=== PATIENT | male | born 1950 | race Caucasian/White ===

== ENCOUNTER → 2017-01-24 | Outpatient (CLI) | payer MEDICARE ==
[~2017-01-24] MED LIST: ALBU8.5H2 IH; ALLO300T2 PO; BENZ200C25 PO; CATHETER FLUSH 10 ML SYR IV PRN; LEVO75TA6 PO; LISI10TA2 PO; LISI20TA PO; LOVA20TA2 PO; OMEG-12 PO; OSLT75CRX PO; PANT20TA2 PO; PRED20TA PO; REGADENOSON 0.4 MG/5 ML SYR (LEXISCAN) IV ONE
[2017-01-24 08:02] VITALS: BP 139/84
--- NOTE | 2017-01-24 13:29 | STRESS TEST ---
DATE OF SERVICE: 01/24/2017 RESTING AND POST REGADENOSON TECHNETIUM 99M TETROFOSMIN SPECT CT IMAGING ORDERING PHYSICIAN: Dr. Hui. PRIMARY PHYSICIAN: Dr. Hui. CLINICAL DIAGNOSIS: Chest discomfort. Baseline images were carried out after injection of 10.78 mCi of technetium-99m tetrofosmin. This was followed by 0.4 mg regadenoson and 30 mCi of technetium-99m tetrofosmin for stress imaging. The study was carried out under Dr. Hui's supervision and the electrocardiographic portion of the study is reported separately by him. Review of images at rest and following stress indicates a small basal inferior perfusion defect which appears transient. Gated images show normal global left systolic function with normal regional wall motion. Left ventricular ejection fraction is calculated to be 55%. Left ventricular inner diastolic volume is 99 mL. TID is absent (1.02). CONCLUSIONS: 1. This study is suggestive of a small amount of basal inferior ischemia. 2. Normal regional wall motion. 3. Normal global left ventricular systolic function with a calculated ejection fraction of 55%. Job ID: [id number] DocumentID: [id number] Dictated Date: 01/24/2017 12:08:42 Medical Physics Researcher Date: 01/24/2017 12:21:54 Dictated By: VERONICA SIMS MD, MA, FACP, FACC, MTDD
== END ==
LOC: CARD 06:40
PROVIDERS: ATTEND Internal Medicine
DX: R53.83 Other fatigue (principal); I10 Essential (primary) hypertension; R07.9 Chest pain, unspecified
CPT/HCPCS: 78452; 93017

== ENCOUNTER → 2020-05-03 | Outpatient (CLI) | payer MEDICARE ==
[~2020-05-03] MED LIST changes: -CATHETER FLUSH 10 ML SYR IV PRN; -REGADENOSON 0.4 MG/5 ML SYR (LEXISCAN) IV ONE
--- NOTE | 2020-05-03 12:25 | Diagnostic Imaging Report ---
PROCEDURE: CT sinuses without contrast TECHNIQUE: Multiple contiguous axial images were obtained through the sinuses without the use of intravenous contrast. Coronal and sagittal reformations were then performed. Auto Exposure Controls were utilized during the CT exam to meet ALARA standards for radiation dose reduction. INDICATION: Sinus congestion and headaches. The frontal sinus is clear. There is some mucosal thickening of ethmoid air cells bilaterally. The sphenoid sinus is clear. Trace mucosal thickening of the right maxillary sinus is noted. There is complete opacification of the left maxillary sinus. Nasal septum is midline. There is opacification of the left ostiomeatal complex. The right ostiomeatal complex is patent. Mastoid air cells are well aerated. IMPRESSION: Findings consistent with left maxillary sinusitis. There is mucosal disease of the ethmoid air cells and right maxillary sinus. Dictated by: Dictated on workstation # [id number]
== END ==
LOC: RAD 09:45
PROVIDERS: ATTEND Internal Medicine
DX: J01.01 Acute recurrent maxillary sinusitis (principal)
CPT/HCPCS: 70486

== ENCOUNTER 2020-07-23 10:43 | Emergency (ER) | payer MEDICARE ==
[~2020-07-23] VITALS: Ht 185 cm; Wt 106.8 kg
[2020-07-23] MEDS ORDERED: TETANUS,DIPTH,PERTUSS P/F (BOOSTRIX) 0.5 ML VIAL IM ONE (11:00)
[2020-07-23] MEDS ORDERED: LIDOCAINE 1% INJ 20 ML 20 ML VIAL INJ ONE (11:00)
[2020-07-23] MEDS ORDERED: CEPH-507 PO (11:40)
--- NOTE | 2020-07-23 11:40 | ED Upper Extremity ---
General Chief Complaint: Laceration Stated Complaint: L HAND THUMB LAC Nursing Triage Note: laceration to L thumb Nursing Sepsis Screen: No Definite Risk Source: patient Exam Limitations: no limitations History of Present Illness Date Seen by Provider: Jul 23, 2020 Time Seen by Provider: 11:00 Initial Comments This is a healthy 69-year-old male presents to ER with complaints of left thumb laceration from an X-Acto knife while cutting sheet rock prior to arrival. States he had just changed the blade prior to incident. Was able to control blee ding with dish towel. Unknown last tetanus. No other injuries reported. Onset: just prior to arrival Severity: mild Pain/Injury Location: left thumb Method of Injury: other (x-acto knife) Allergies and Home Medications Allergies Coded Allergies: No Known Drug Allergies (Unverified , 12/05/10) Home Medications Allopurinol 300 Mg Tab, 300 MG PO DAILY, (Reported) Cephalexin 500 Mg Capsule, 500 MG PO TID Prescribed by: TEENA BURROUGHS on 07/23/20 1140 Levothyroxine Sodium 75 Mcg Tablet, 75 MCG PO DAILY, (Reported) Lisinopril 20 Mg Tablet, 20 MG PO DAILY, (Reported) Lovastatin 20 Mg Tablet, 20 MG PO DAILY WITH LUNCH, (Reported) [place]-3/Dha/Epa/Fish Oil 1 Each Capsule.dr, 2,000 MG PO DAILY, (Reported) TAKES 2 (1000MG) CAPSULES Pantoprazole Sodium 20 Mg Tablet.dr, 20 MG PO DAILY, (Reported) OVER THE COUNTER Patient Home Medication List Home Medication List Reviewed: Yes Review of Systems Constitutional: no symptoms reported EENTM: no symptoms reported Respiratory: no symptoms reported Cardiovascular: no symptoms reported Gastrointestinal: no symptoms reported Genitourinary: no symptoms reported Musculoskeletal: no symptoms reported Skin: see HPI Psychiatric/Neurological: No Symptoms Reported Past Dlaumwn-Mgcwft-Upvjeu Hx Patient Social History Alcohol Use: Denies Use Recreational Drug Use: No Smoking Status: Never a Smoker Recent Foreign Travel: No Contact w/Someone Who Travel: No Recent Infectious Disease Expo: No Immunizations Up To Date Tetanus Booster (TDap): Less than 5yrs PED Vaccines UTD: No Date of Influenza Vaccine: Nov 12, 2014 Seasonal Allergies Seasonal Allergies: No Past Medical History Surgeries: Yes ( RIGHT ARTHOSCOPY, SARCOMA REMOVAL) Orthopedic Respiratory: No Cardiac: Yes High Cholesterol, Hypertension Neurological: No Reproductive Disorders: No Sexually Transmitted Disease: No HIV/AIDS: No Gastrointestinal: No Musculoskeletal: No Gout Endocrine: No 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) Psychosocial: No Integumentary: No Blood Disorders: No Family Medical History Alzheimer's disease 19 FATHER Arthritis 19 FATHER Cataracts 19 FATHER 19 MOTHER Completed stroke 19 FATHER Deafness or hearing loss 19 FATHER 19 MOTHER Dementia 19 FATHER Hypercholesterolemia 19 FATHER Hypertension 19 FATHER Myocardial infarction G8 BROTHER Prostate cancer 19 FATHER G8 BROTHER No Family History of: AIDS Abdominal aortic aneurysm Patrick's disease Alcoholism Aphasia Asthma Cancer of mouth Cardiovascular disease Colon cancer Congenital disease Congenital heart disease Coronary thrombosis Cystic fibrosis Diabetes mellitus Drug abuse Dysphasia Fibrocystic disease of breast Gastroenteritis Glaucoma Headache disorder Infertility Kidney disease Neoplasm Not obtainable due to adoption Osteoporosis Parkinson's disease Psychosocial problem Respiratory disorder Seizure disorder Severe allergy Thyroid disease Tuberculosis Visual disorder Physical Exam Vital Signs Vital Signs - First Documented 07/23/20 10:48 Temp 36.5 Pulse 90 Resp 18 B/P (MAP) 200/103 (135) Pulse Ox 98 Capillary Refill : Less Than 3 Seconds Height, Weight, BMI Height: 6'1.00" Weight: 237lbs. 5.0oz. [id number]; 31.00 BMI Method:Stated General Appearance: WD/WN, no apparent distress HEENT: PERRL/EOMI Neck: full range of motion, normal inspection Cardiovascular: regular rate, rhythm, no gallop, no murmur Respiratory: lungs clear, normal breath sounds, no respiratory distress Back: normal inspection Hand: Left, laceration (left thumb ) Neurologic/Tendon: normal sensation, normal motor functions, normal tendon functions Neurologic/Psychiatric: no motor/sensory deficits, alert, normal mood/affect Skin: normal color, warm/dry, other (see wound repair note. ) Procedures/Interventions Wound Location: Other (left thumb ) Other Wound Location Left lateral thumb pad Wound Length (cm): 2 Wound's Depth, Shape: linear Wound Explored: clean Anesthesia: 1% Lidocaine Volume Anesthetic (ccs): 3 Suture: Prolene Suture Size: 4-0 Number of Sutures: 4 Neurovascular intact prior to anesthetizing left thumb. Site was cleansed with normal saline and chlorhexidine wash. Skin was approximated with 4 sutures, tolerated well. Covered site with dry sterile dressing. Reviewed discharge instructions and he is agreeable with plan. Progress/Results/Core Measures Results/Orders Medications Given in ED Current Medications Medications Dose Ordered Sig/Tila Route Start Time Stop Time Status Last Admin Dose Admin Diphtheria/ Tetanus/Acell Pertussis 0.5 ml ONCE ONCE IM 07/23/20 11:00 07/23/20 11:01 DC 07/23/20 10:54 0.5 ML Vital Signs/I&O 07/23/20 10:48 Temp 36.5 Pulse 90 Resp 18 B/P (MAP) 200/103 (135) Pulse Ox 98 Blood Pressure Mean: 135 Departure Impression Primary Impression: Laceration of thumb Disposition: 01 HOME, SELF-CARE Condition: Improved Departure-Patient Inst. Decision time for Depature: 11:36 Referrals: JEFF MENDENHALL DO (PCP/Family) Primary Care Physician Patient Instructions: Laceration Repair With Stitches (DC) Add. Discharge Instructions: Plan: 1. Discharge home. 2. May take Tylenol or Ibuprofen as needed for pain per package instructions. 3. Keep left hand elevated above your heart over the next 72 hours to reduce swelling. 4. May shower, do not soak or scrub, pat dry and cover with dry dressing for next 2-3 days. May leave open to air after. 5. Take Keflex 500mg three times a day as directed and complete full course,. 6. Monitor for signs of infection: redness, swelling , fever, yellow or green drainage. 7. Return to ER on 07/30/20 for suture removal. 8. Return for any new or concerning symptoms. All discharge instructions reviewed with patient and/or family. Voiced understanding. Scripts Cephalexin (Keflex) 500 Mg Capsule 500 MG PO TID for 7 Days, #21 CAP 0 Refills Prov: TEENA BURROUGHS MARKET ANALYST 07/23/20 TEENA BURROUGHS MARKET ANALYST Jul 23, 2020 11:40
[2020-07-23 11:48] VITALS: BP 148/90
== END 2020-07-23 11:48 | disposition home or self-care (01) ==
LOC: ER 10:43 → EDUNIT# 10:43 → ER 11:48
DX: S61.012A Laceration without foreign body of left thumb without damage to nail, initial encounter (principal); I10 Essential (primary) hypertension; E78.00 Pure hypercholesterolemia, unspecified; M10.9 Gout, unspecified; Z82.61 Family history of arthritis; Z82.49 Family history of ischemic heart disease and other diseases of the circulatory system; Z80.42 Family history of malignant neoplasm of prostate; Z23 Encounter for immunization; W26.0XXA Contact with knife, initial encounter
CPT/HCPCS: 12011; 90715

== ENCOUNTER 2020-07-30 14:42 | Emergency (ER) | payer MEDICARE, OTHER ==
[~2020-07-30 14:42] MED LIST changes: +CEPH-507 PO
[2020-07-30] MEDS ORDERED: RT-ALBUTEROL/IPRATROPIUM 3 ML (DUONEB) VIAL ONE (20:22)
== END 2020-07-30 15:15 | disposition left against medical advice (07) ==
LOC: EDUNIT# 14:42 → ER 14:44
DX: T14.8XXD Other injury of unspecified body region, subsequent encounter (principal); X58.XXXD Exposure to other specified factors, subsequent encounter

== ENCOUNTER 2020-07-31 09:22 | Emergency (ER) | payer MEDICARE, OTHER ==
[~2020-07-31] VITALS: Ht 185 cm; Wt 106.8 kg
[2020-07-31 09:50] VITALS: BP 138/86
== END 2020-07-31 09:50 | disposition home or self-care (01) ==
LOC: EDUNIT# 09:22 → ER 09:23
DX: S61.012D Laceration without foreign body of left thumb without damage to nail, subsequent encounter (principal); X58.XXXD Exposure to other specified factors, subsequent encounter

== ENCOUNTER → 2020-10-20 | Outpatient (CLI) | payer MEDICARE, OTHER ==
[~2020-10-20] VITALS: Ht 185 cm; Wt 107.0 kg
[~2020-10-20] MED LIST changes: +BAMLANIVIMAB (NON FORM) 700 MG in NS (IVPB) 100 ML IV ONE; +EPINEPHrine INJECTION 1 MG/ML AMP IM PRN; +diphenhydrAMINE 50 MG/ML INJ (BENADRYL) IV PRN
[2020-10-20 08:08] VITALS: BP 177/80
[2020-10-20 09:46] VITALS: BP 132/67
== END ==
LOC: INFUSION 08:11
PROVIDERS: ATTEND Nurse Practitioner Family
DX: U07.1 COVID-19 (principal)

== ENCOUNTER 2022-02-26 14:53 | Emergency (ER) | payer MEDICARE, OTHER ==
[~2022-02-26] VITALS: Ht 185 cm; Wt 109.0 kg
[~2022-02-26 14:53] MED LIST changes: -BAMLANIVIMAB (NON FORM) 700 MG in NS (IVPB) 100 ML IV ONE; -EPINEPHrine INJECTION 1 MG/ML AMP IM PRN; -diphenhydrAMINE 50 MG/ML INJ (BENADRYL) IV PRN
[2022-02-26] MEDS ORDERED: LIDOCAINE 1% INJ 20 ML VIAL INJ ONE (15:15)
--- NOTE | 2022-02-26 15:45 | ED Upper Extremity ---
General Chief Complaint: Laceration Stated Complaint: LEFT ARM LAC Nursing Triage Note: pt states he cut his lt arm with a saw, approx 1 cm lac that needs repaired, bleeding controlled Source: patient Exam Limitations: no limitations History of Present Illness Date Seen by Provider: Feb 26, 2022 Time Seen by Provider: 15:01 Allergies and Home Medications Allergies Coded Allergies: No Known Drug Allergies (Unverified , 12/05/10) Patient Home Medication List Allopurinol (Zyloprim Tablet) 300 Mg Tab, 300 MG PO DAILY, (Reported) Entered as Reported by: JAYLIN WELLS on 05/25/14 1103 Cephalexin (Keflex) 500 Mg Capsule, 500 MG PO TID Prescribed by: TEENA BURROUGHS on 07/23/20 1140 Levothyroxine Sodium (Levothyroxine 75 Mcg Tab) 75 Mcg Tablet, 75 MCG PO DAILY, (Reported) Entered as Reported by: JAN CLINE on 11/11/14 0943 Lisinopril (Prinivil) 20 Mg Tablet, 20 MG PO DAILY, (Reported) Entered as Reported by: JAN CLINE on 11/11/14 0943 Lovastatin (Lovastatin 20 Mg) 20 Mg Tablet, 20 MG PO DAILY WITH LUNCH, (Reported) Entered as Reported by: JAYLIN WELLS on 05/25/14 1103 [place]-3/Dha/Epa/Fish Oil (Fish Oil 1,000 Mg Ec Softgel) 1 Each Capsule.dr, 2,000 MG PO DAILY, (Reported) Entered as Reported by: JAYLIN WELLS on 05/25/14 1103 Pantoprazole Sodium (Protonix) 20 Mg Tablet.dr, 20 MG PO DAILY, (Reported) Entered as Reported by: TAMMY SORENSEN on 11/12/14 1051 Past Ovanhlp-Msmkmv-Kgcfyf Hx Patient Social History Tobacco Use?: No Substance use?: No Alcohol Use?: Yes Alcohol type: Beer, Hard Liquor Alcohol Frequency: Once in a while Immunizations Up To Date Tetanus Booster (TDap): Less than 5yrs PED Vaccines UTD: No Third COVID19 Vaccination Date: 07/29 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[employer] Seasonal Allergies Seasonal Allergies: No Past Medical History Surgery/Hospitalization HX: rt knee Surgeries: Yes ( RIGHT ARTHOSCOPY, SARCOMA REMOVAL) Orthopedic Respiratory: No Cardiac: Yes High Cholesterol, Hypertension Neurological: No Reproductive Disorders: No Sexually Transmitted Disease: No HIV/AIDS: No Gastrointestinal: No Musculoskeletal: No Gout Endocrine: No 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) Psychosocial: No Integumentary: No Blood Disorders: No Family Medical History Alzheimer's disease 19 FATHER Arthritis 19 FATHER Cataracts 19 FATHER 19 MOTHER Completed stroke 19 FATHER Deafness or hearing loss 19 FATHER 19 MOTHER Dementia 19 FATHER Hypercholesterolemia 19 FATHER Hypertension 19 FATHER Myocardial infarction G8 BROTHER Prostate cancer 19 FATHER G8 BROTHER No Family History of: AIDS Abdominal aortic aneurysm Livan's disease Alcoholism Aphasia Asthma Cancer of mouth Cardiovascular disease Colon cancer Congenital disease Congenital heart disease Coronary thrombosis Cystic fibrosis Diabetes mellitus Drug abuse Dysphasia Fibrocystic disease of breast Gastroenteritis Glaucoma Headache disorder Infertility Kidney disease Neoplasm Not obtainable due to adoption Osteoporosis Parkinson's disease Psychosocial problem Respiratory disorder Seizure disorder Severe allergy Thyroid disease Tuberculosis Visual disorder Physical Exam Vital Signs Vital Signs - First Documented 02/26/22 14:59 Temp 36.3 Pulse 85 Resp 20 B/P (MAP) 153/75 (101) Pulse Ox 97 O2 Delivery Room Air Capillary Refill : Less Than 3 Seconds Height, Weight, BMI Height: 6'1.00" Weight: 237lbs. 5.0oz. 107.615243il; 31.00 BMI Method:Actual Procedures/Interventions Suture Size: 4-0 Progress/Results/Core Measures Results/Orders My Orders Orders - EMILIANO ESPINAL MD Lidocaine 1% Inj 20 Ml (Xylocaine 1% Inj (02/26/22 15:15) Medications Given in ED Current Medications Medications Dose Ordered Sig/Tila Route Start Time Stop Time Status Last Admin Dose Admin Lidocaine HCl 20 ml ONCE ONCE INJ 02/26/22 15:15 02/26/22 15:16 DC 02/26/22 15:31 1 ML Vital Signs/I&O 02/26/22 14:59 Temp 36.3 Pulse 85 Resp 20 B/P (MAP) 153/75 (101) Pulse Ox 97 O2 Delivery Room Air Blood Pressure Mean: 101 Departure Impression Primary Impression: Laceration of left forearm Qualified Codes: S51.812A - Laceration without foreign body of left forearm, initial encounter Disposition: HOME, SELF-CARE Condition: Improved Departure-Patient Inst. Decision time for Depature: 15:44 Referrals: JEFF MENDENHALL DO (PCP/Family) Primary Care Physician Patient Instructions: Laceration Repair With Stitches ED Add. Discharge Instructions: Keep the wound clean and dry except for normal showering and handwashing. Do not submerge until sutures are removed. You may allow soapy water to run over the wound but avoid scrubbing directly over the stitches. Cover when active, sleeping, or in dirty environments. Leave open to air when awake and at rest in a clean environment. Return in 7 days to have sutures removed. You do not need an appointment. Monitor for signs of infection such as increasing redness, increasing swelling, puslike drainage, or fever. Return to care if you notice the symptoms. All discharge instructions reviewed with patient and/or family. Voiced understanding. EMILIANO ESPINAL MD Feb 26, 2022 15:45
[2022-02-26 15:52] VITALS: BP 153/75
== END 2022-02-26 15:52 | disposition home or self-care (01) ==
LOC: EDUNIT# 14:53 → ER 14:54
DX: S51.812A Laceration without foreign body of left forearm, initial encounter (principal); W27.0XXA Contact with workbench tool, initial encounter
CPT/HCPCS: 12001

== ENCOUNTER 2022-03-05 09:05 | Emergency (ER) | payer MEDICARE, OTHER ==
[~2022-03-05] VITALS: Ht 185 cm; Wt 108.8 kg
[2022-03-05 09:10] VITALS: BP 154/91
== END 2022-03-05 09:20 | disposition home or self-care (01) ==
LOC: EDUNIT# 09:05 → ER 09:07
DX: Z48.02 Encounter for removal of sutures (principal)

== ENCOUNTER → 2022-08-26 | Outpatient (CLI) | payer MEDICARE, OTHER ==
--- NOTE | 2022-08-26 15:55 | Diagnostic Imaging Report ---
INDICATION: Status post total right knee replacement. Persistent pain. COMPARISON: None TECHNIQUE: The patient was administered 27 mCi technetium 99m MDP IV. Blood flow, blood pool, and delayed scintigraphic images were obtained over the bilateral knees. FINDINGS: Blood flow images in the anterior and posterior projections were obtained and show subtle increased activity about the medial and lateral margins of the right knee. There is no abnormal increased uptake on the left. Blood pool images show areas of corresponding increased uptake involving the lateral and medial margins of the right knee. There is central paucity signal consistent with indwelling hardware from previous knee replacement. Delayed images also show abnormal uptake about the right knee involving both the distal femur and proximal tibia. IMPRESSION: 1. Triple phase bone scan shows three-phase increased uptake about the right knee prosthesis. This does raise concern for potential infection with osteomyelitis. Loosening is also a consideration. Clinical correlation is advised. Dictated by: Dictated on workstation # [id number]
== END ==
LOC: CARD 12:00
PROVIDERS: ATTEND Orthopaedic Surgery
DX: M25.561 Pain in right knee (principal); G89.29 Other chronic pain; Z96.651 Presence of right artificial knee joint
CPT/HCPCS: 78315; A9503

== ENCOUNTER → 2023-04-11 | Outpatient (CLI) | payer MEDICARE, OTHER | LOC: LAB 11:30 | PROVIDERS: ATTEND Internal Medicine | DX: R19.7 Diarrhea, unspecified (principal) | CPT/HCPCS: 82274; 87015; 87045; 87046; 87328; 87329; 87899 ==